=== PATIENT | male | born 1980 | race Caucasian/White ===

== ENCOUNTER 2021-10-27 21:43 | Emergency (ER) | payer SELFPAY ==
[2021-10-27 22:16] LABS: BASOPHIL 0.4 % (0-2); EOSINOPHIL 0.4 % (0-5); HCT 45.1 % (42.0-52.0); HGB 15.3 g/dl (13.2-18.0); LYMPHOCYTE 14.6 % (15-48); MCH 29.9 pg (25.0-31.0); MCHC 33.9 g/dL (32.0-36.0); MCV 88.3 fL (78.0-100.0); MPV 9.4 fL (6.0-9.5); NEUTROPHIL 77.3 % (41-80); NRBC 0; PLT 252 K/uL (150-400); RBC 5.11 M/uL (4.70-6.00); RDW 12.3 % (11.5-14.0); WBC 11.5 K/uL (4.0-10.5)
[2021-10-27 22:45] LABS: ALBUMIN 4.4 g/dL (3.4-5.0); BILIRUBIN - TOTAL 0.6 mg/dL (0.2-1.0); BUN/CREAT RATIO (CALC) 14.3 RATIO; CREATININE 1.4 mg/dL (0.67-1.17); GLOBULIN (CALCULATION) 3.1 g/dL; TOTAL PROTEIN 7.5 g/dL (6.4-8.2)
[2021-10-27] MEDS ORDERED: FLOMAX0.4 MG PO (23:46)
[2021-10-27] MEDS ORDERED: PERCOCET 5-3251 EACH PO (23:46)
[2021-10-27] MEDS ORDERED: ONDANSETRON ODT4 MG PO (23:46)
== END 2021-10-27 23:35 | disposition home or self-care (01) ==
LOC: FER 21:43
PROVIDERS: Internal Medicine
DX: N13.2 Hydronephrosis with renal and ureteral calculous obstruction (principal); N17.9 Acute kidney failure, unspecified; Z87.442 Personal history of urinary calculi
CPT/HCPCS: 36415; 80053; 83690; 85025; J1170; J2405; J7030